=== PATIENT | female | born 1975 | race African-American/Black ===

== ENCOUNTER 2016-10-31 19:47 | Emergency (ER) | payer BC, OTHER ==
--- NOTE | ~2016-10-31 | CR181 ---
[facility] A Service of [facility] RADIOLOGY TEXT RESULTS PATIENT: KWAKU ANAYA LOCATION: SED : 79 UNIT #: [id number] AGE: [address]: Cecelia Turner SEX: F ORDER DR: [id number] [place] [id number] E MR#: [id number] Acc #: [id number] NAME: KWAKU ANAYA : 1975 SEX: F STUDY DATE/TIME: 10/31/2016 20:10 UNIT: SED ROOM: STUDY DESCRIPTION: CR Lumbar Spine 2 or 3 Views Attending Physician: Cecelia Turner Pa-C Ordering Physician: Cecelia Turner Pa-C MEDICAL IMAGING REPORT This report is preliminary unless electronic signature is present. EXAM 3 views of the lumbar spine 10/31/2016 HISTORY 41-year-old female with lower back pain since yesterday. COMPARISON STUDIES None. FINDINGS No acute fracture or subluxation. No osteolytic or osteoblastic abnormality. No retained foreign body. Disc space height appears preserved. IMPRESSION Normal lumbar spine series. Dictated by... Adwoa Phan M.D. THIS IS AN ELECTRONICALLY VERIFIED REPORT Adwoa Phan M.D. at 11/01/2016 7:11 AM LLH/pcl TD: 11/01/2016 00:20 JOB #: [id number] MEDICAL IMAGING REPORT [facility] A Service of [facility] RADIOLOGY TEXT RESULTS PATIENT: KWAKU ANAYA LOCATION: SED : 79 UNIT #: [id number] AGE: [address]: Cecelia Turner SEX: F ORDER DR: Page 1 of 1
[2016-10-31 19:33] LABS: URINE SOURCE CLEAN CATCH
[2016-10-31 19:36] LABS: URINE APPEARANCE CLEAR; URINE BILIRUBIN NEG (NEG); URINE BLOOD NEG (NEG); URINE COLOR YELLOW; URINE GLUCOSE NEG (NORM); URINE KETONE NEG (NEG); URINE LEUKOCYTE ESTERASE NEG (NEG); URINE NITRATE NEG (NEG); URINE PROTEIN NEG (NEG); URINE SPECIFIC GRAVITY >=1.030 (1.003-1.035); URINE UROBILINOGEN 0.2 MG/DL (NORM)
[2016-10-31 19:37] LABS: MICRO INDICATED? NO
[~2016-10-31 19:47] MED LIST: ALBUTEROL17 GM INH; SINGULAIR PO; ZYRTEC10 M1 PO
== END 2016-10-31 21:17 | disposition home or self-care (01) ==
LOC: SED 19:47
PROVIDERS: Physician Assistant
DX: S39.012A Strain of muscle, fascia and tendon of lower back, initial encounter (principal); J45.909 Unspecified asthma, uncomplicated; Z79.899 Other long term (current) drug therapy; X58.XXXA Exposure to other specified factors, initial encounter; Y93.89 Activity, other specified; Y92.69 Other specified industrial and construction area as the place of occurrence of the external cause; Y99.0 Civilian activity done for income or pay
CPT/HCPCS: 72100; 81003; 84703; 96372; 99283; J1040; J1885